=== PATIENT | male | born 1970 | race Caucasian/White ===

== ENCOUNTER → 2021-02-14 | Day surgery (SDC) | payer BC ==
[2021-02-08 12:55] LABS: BASOPHILS % (AUTO) 0.9 % (0-1); EOSINOPHILS # (AUTO) 0.1 X10'3 (0-0.9); EOSINOPHILS % (AUTO) 1.8 % (0-6); LYMPHOCYTES # (AUTO) 1.3 X10'3 (1.1-4.8); LYMPHOCYTES % (AUTO) 31.2 % (21-51); MEAN CORPUSCULAR HEMOGLOBIN 29.7 PG (27.0-31.0); MEAN CORPUSCULAR HGB CONC 33.3 g/dL (33.0-36.5); MEAN CORPUSCULAR VOLUME 89.1 FL (78-98); MEAN PLATELET VOLUME 9.4 FL (7.4-10.4); MONOCYTES # (AUTO) 0.6 X10'3 (0-0.9); MONOCYTES % (AUTO) 14.4 % (2-12); NEUTROPHILS # (AUTO) 2.2 X10'3 (1.8-7.7); NEUTROPHILS % (AUTO) 51.7 % (42-75); PRE OP HEMATOCRIT 42.8 % (42.0-52.0); PRE OP HEMOGLOBIN 14.2 g/dL (14.0-17.9); PRE OP PLATELET COUNT 212 X10'3 (140-440)
[2021-02-08 13:02] LABS: ALBUMIN 3.8 G/DL (3.4-5.0); ALBUMIN/GLOBULIN RATIO 1.1 (1.1-1.5); ALKALINE PHOSPHATASE 98 IU/L (46-116); BLOOD UREA NITROGEN 16 MG/DL (7-18); BUN/CREATININE RATIO 21.6 (5.4-32.0); CALCIUM 8.8 MG/DL (8.5-10.1); CHLORIDE 104 MMOL/L (99-107); CREATININE 0.74 MG/DL (0.60-1.10); PRE OP ALT 33 U/L (30-65); PRE OP ANION GAP 12 (8-16); PRE OP AST 20 U/L (10-37); PRE OP BILIRUB, TOTAL 0.5 MG/DL (0.0-1.0); PRE OP GLUCOSE 98 MG/DL (70-104); PRE OP POTASSIUM 3.9 MMOL/L (3.4-5.1); PRE OP SODIUM 142 MMOL/L (135-145); TOTAL CARBON DIOXIDE 26.3 MMOL/L (24-32); TOTAL PROTEIN 7.3 G/DL (6.4-8.2); eGFR > 90 ML/MIN
[~2021-02-14] VITALS: Ht 167.6 cm; Wt 80.4 kg
[2021-02-14] VITALS (18 sets, daily range): BP systolic 104–127; BP diastolic 73–86
[~2021-02-14] MED LIST: BUPIVACAINE liposomal/PF 13.3 MG/ML vial IM ONE; BUPIVAcaine/PF 2.5 mg/ml (0.25%) 30ml vial ONE; BUPIVAcaine/PF 2.5mg/ml (0.25%) 10ml vial ONE; CITA40TA17 PO; DEXL60CA3 PO; DOCUMENT DATE & TIME OF BETA-BLOCKER PO ONE; LEVO25TA7 PO; LIDOcaine 2% (20mg/ml) 5ml vial ONE; PROP60TA19 PO; acetaminophen 1,000mg/100ml IV 100 ML IV ONE; albuterol 2.5 MG/3 ML nebule NEB ONE; ceFAZolin 2gm in dextrose, iso 50 ML IV ONE; dexamethasone sod phosphate 4mg/ml inj. ONE; famotidine 20mg tablet PO ONE; fentaNYL/PF 50MCG/1 ML 2ML syringe ONE; glycopyrrolate 0.2mg/ml inj ONE; meperidine/PF 25mg/ml syringe IV PRN; meperidine/PF 25mg/ml syringe ONE; midazolam 1 mg/ML 2ml injection ONE; morphine 2 MG/ML inj. syringe IV PRN; morphine 4 MG/ML inj SYRINge IV PRN; neostigmine methylsulfate 1 MG/ML 10ml vial ONE; ondansetron/PF 4mg/2ml inj IV PRN; ondansetron/PF 4mg/2ml inj ONE; proCHLORperazine 10 MG/2 ml inj IV PRN; propofol inj 20 ML IV ONE; ringers solution, lacted 1,000 ML IV SCH; rocuronium 10mg/ml inj IV ONE; sevoflurane 250ml liquid IH ONE
--- NOTE | 2021-02-14 10:27 | NUR ---
Received from OR via [facility] , accompanied by Anesthesiologist HEBER and report given by Anesthesiolgist. PATIENT WITH 20G PIV IN RIGHT UE RUNNING LR AT 100. 3 ABDOMINAL LAP SITES PRESENT WITH NO DRESSING NOR DRAINAGE. DENIES PAIN AT THIS TIME. 10L MASK ON WITH 100% SATURATIONS. Addendum: 02/14/21 at 1041 by Kirt Frost RN, RN Amended: Links added.
--- NOTE | 2021-02-14 11:09 | NUR ---
PATIENT DEEP BREATHED AND COUGHED EVERY 10 MINS WHILE HERE IN RR Addendum: 02/14/21 at 1110 by Kirt Frost RN, RN Amended: Links added.
--- NOTE | 2021-02-14 13:50 | NUR ---
CARE TURNED OVER TO JAMES CRAWFORD IN PAS UNIT. BLADDER SCANNER BROUGHT OVER AND PATIENT STILL DECLINES NEED FOR PAIN MEDICATIONS. HAS BEEN WALKING AND ATTEMPTING TO VOID UNSUCCESSFULLY. PATIENT TAKEN OVER ON GURNEY WITH IV FLUIDS RUNNING. TY RAMIREZ ACCEPTED CARE ON PAS UNIT. Addendum: 02/14/21 at 1359 by Kirt Frost RN, RN Amended: Links added.
--- NOTE | 2021-02-14 14:00 | NUR ---
RECEIVED CARE OF PT. A&OX4. VSS. STATES PAIN WITH MOVEMENT ONLY,DECLINES PAIN MEDS WHEN OFFERED. IV PATENT #20 RIGHT HAND WITH LR 100MLS/HR. ABD SOFT/NONDISTENDED. ABD SCOPE SITES X3 WITH DERMABOND PRESENT CDI. CSM'S WNL. BLADDER SCAN WITH 210MLS PRESENT. PO FLUIDS AND SNACK GIVEN. UP AMB TO BR.
--- NOTE | 2021-02-14 14:30 | NUR ---
PRESENT AT THE BEDSIDE. PT VOID 175 MLS WITH BLADDER SCAN 240MLS PRESENT. PT STATES HE CAN VOID, BUT FEELS PAIN WHEN VOIDING AND STOPS. DECLINES PAIN MEDS AT THIS TIME.
--- NOTE | 2021-02-14 15:10 | NUR ---
VSS. ABD SOFT. ABD SITES CDI. VOID 375MLS. BLADDER SCAN WITH 330MLS PRESENT. PT WISHES TO CONT TO VOID AND DECLINES INTERVENTION AT THIS TIME
--- NOTE | 2021-02-14 15:47 | NUR ---
(1530) PT VOID 250MLS LIGHT YELLOW URINE. DR CIFUENTES IN THE ROOM AND SPOKE WITH PT AND (WHO IS A NURSE ON PCU), DISCUSSED NEED TO MONITOR URINATION AND BLADDER COMFORT. PT STATED WISH TO DC HOME AT THIS TIME, WHICH AGREED. DC INSTRUCTIONS REVIEWED WITH PT AND WITH ALL QUESTIONS ANSWERED. [place] SITES CDI. STATES NO TO LITTLE DISCOMFORT. DC HOME VIA PRIVATE AUTO WITH ALL PERSONAL BELONGINGS. Addendum: 02/14/21 at 1605 by Susanne Kirkpatrick RN Amended: Links added.
== END | disposition home or self-care (01) ==
LOC: PAS 05:29 → EDBD 09:15
PROVIDERS: ATTEND Surgery
DX: K40.20 Bilateral inguinal hernia, without obstruction or gangrene, not specified as recurrent (principal); K42.9 Umbilical hernia without obstruction or gangrene; Z87.891 Personal history of nicotine dependence; E03.9 Hypothyroidism, unspecified; G43.909 Migraine, unspecified, not intractable, without status migrainosus; Z79.899 Other long term (current) drug therapy
CPT/HCPCS: 36415; 49650; 49652; 64488; 80053; 82948; 85025; 93005; C1758; C1781; C9290; J0131; J1100; J2001; J2175; J2250; J2405; J2704; J2710; J3010; J3490; J7120; S2900; U0003; A4215; A4618; A7000